=== PATIENT | male | born 1950 | race Caucasian/White ===

== ENCOUNTER 2022-05-09 14:49 | Inpatient (IN) | payer MEDICARE, OTHER ==
[2022-05-09] MEDS ORDERED: NOREPINEPHRINE 8 MG/250 ML-D5W 250 ML ONE (14:59)
[2022-05-09 15:43] LABS: Actual Bicarbonate (HCO3a) 2.1 mEq/L (22-28); CO2 Tension 24.9 mmHg (35.0-45.0); Calcium, Ionized (arterial) 1.24 mmol/L (1.12-1.30); Carboxyhemoglobin (COHb) 0.3 gm% (0.0-3.0); Hemoglobin (Hb) 10.1 g/dL (14.0-18.0); O2 Tension (PaO2), arterial 248.2 mmHg (> 80.0); Puncture Site LBA; pH, Arterial 6.55 (7.35-7.45)
[2022-05-09 15:46] LABS: ALV-art Gradient 77.175 mmHg (0-20); Base Excess (BEa) -35.6 mEq/L (-2.0 to +3.0)
[2022-05-09 15:54] LABS: #Neutrophils 7.3 10x3/uL (1.5-8.4); %Basophils 0.1 % (0.0-2.0); %Eosinophils 0.2 % (0.0-6.0); %Lymphocytes 27.1 % (18.0-47.0); %Neutrophils 60.2 % (40.0-75.0); Hemoglobin 6.3 g/dL (13.5-17.5); Mean Corpuscular HGB CONC 29.6 g/dL (32.0-36.0); Mean Corpuscular Volume 108.1 fl (81.2-95.1); Mean Platelet Volume 11.5 fl (7.4-10.4); Platelet Count 100 10x3/uL (150-450); RBC Distribution Width 12.4 % (11.5-14.5); Red Blood Cell (RBC) Count 1.97 10x6/uL (4.32-5.72); White Blood Cell (WBC) Count 12.2 10x3/uL (3.5-10.5)
[2022-05-09] MEDS ORDERED: Vancomycin 1 GM VIAL ONE (15:58)
[2022-05-09 16:08] LABS: ALT (SGPT) 25 U/L (8-55); AST (SGOT) 35 U/L (5-34); Alkaline Phosphatase 36 U/L (40-110); BUN (Urea Nitrogen) 58 mg/dL (8.4-25.7); Bilirubin, Total 0.2 mg/dL (0.2-1.2); CK (CPK) 117 U/L (30-200); Calc. Creatinine Clearance 0 mL/min (70-130); Chloride 122 mmol/L (98-107); Estimated GFR 9; Globulin 1.6 g/dL (2.4-3.5); Glucose 107 mg/dL (80-115); Lipase 70 U/L (8-78); Potassium 3.3 mmol/L (3.5-5.1); Protein, Total 3.6 g/dL (5.8-8.1); Sodium 145 mmol/L (136-145)
[2022-05-09 16:11] LABS: Calcium 5.4 mg/dL (7.8-10.44); Carbon Dioxide Less than 8 mmol/L (23-31)
[2022-05-09] MEDS ORDERED: Sodium Bicarbonate 150 MEQ in Dextrose 5% in Water 1,000 ML IV SCH (16:15)
[2022-05-09 16:50] LABS: Band 8 % (5-11); Eosinophils 1 % (0-10); Lymphocytes 28 % (21-51); Metamyelocyte 1 % (0-0); Monocytes 6 % (0-10); Myelocyte 1 % (0-0); Neutrophil 53 % (42-75); Reactive Lymphocytes 2 % (0-10)
[2022-05-09 16:53] LABS: Anisocytosis SLIGHT = 6-15 cells (100X) (0-5/hpf); Burr Cells SLIGHT = 2-5 cells (100X) (0-1/hpf); Crenated RBC SLIGHT = 1-5 cells (100X) (None Seen); Hypochromia SLIGHT = 6-15 cells (100X) (0-5/hpf); Macrocytosis SLIGHT = 6-15 cells (100X) (0-5/hpf); Ovalocytes SLIGHT = 2-5 cells (100X) (0-1/hpf)
[2022-05-09 16:55] LABS: Large Platelets SLIGHT; Platelet Morphology Comment Appears Decreased
[2022-05-09 17:00] LABS: #Basophils 0.1 10x3/uL (0.0-0.2); #Monocytes 1.4 10x3/uL (0.0-1.1); #Neutrophils 11.8 10x3/uL (1.5-8.4); %Basophils 0.3 % (0.0-2.0); %Eosinophils 0.2 % (0.0-6.0); %Lymphocytes 20.6 % (18.0-47.0); %Neutrophils 66.1 % (40.0-75.0); Hemoglobin 8.8 g/dL (13.5-17.5); Mean Corpuscular HGB CONC 29.6 g/dL (32.0-36.0); Mean Corpuscular Hemoglobin 31.7 pg (27.0-33.0); Mean Corpuscular Volume 106.8 fl (81.2-95.1); Mean Platelet Volume 12.2 fl (7.4-10.4); Platelet Count 132 10x3/uL (150-450); RBC Distribution Width 12.4 % (11.5-14.5); Red Blood Cell (RBC) Count 2.78 10x6/uL (4.32-5.72); White Blood Cell (WBC) Count 17.8 10x3/uL (3.5-10.5)
[2022-05-09] MEDS ORDERED: Ventilator Sedation Protocol 1 EACH FS PRN (17:10)
[2022-05-09] MEDS ORDERED: Dextrose 50% Abboject 50 ML SYRINGE SLOW IVP PRN (17:18)
[2022-05-09] MEDS ORDERED: HumaLOG 300 UNITS/3 ML VIAL SC PRN (17:18)
[2022-05-09] MEDS ORDERED: Dextrose 5% in Water 1,000 ML IV PRN (17:18)
[2022-05-09] MEDS ORDERED: Morphine 2 MG/ML VIAL SLOW IVP PRN (17:30)
[2022-05-09] MEDS ORDERED: Lorazepam 2 MG/ML VIAL SLOW IVP PRN (17:30)
[2022-05-09] MEDS ORDERED: Fentanyl BOLUS 250 ML IVPB PRN (17:30)
[2022-05-09] MEDS ORDERED: Propofol BOLUS 1,000 MG/100 ML VIAL IV PRN (17:30)
[2022-05-09] MEDS ORDERED: DISCONTINUE PREVIOUS NARCOTIC PAIN MEDICATIONS AND BENZODIAZEPINES FS SCH (17:30)
[2022-05-09] MEDS: NOREPINEPHRINE 8 MG/250 ML-D5W 250 ML IVPB SCH (17:48)
[2022-05-09 19:46] LABS: Lactic Acid 17.8 mmol/L (0.5-2.2)
[2022-05-09] MEDS ORDERED: Vancomycin Diaylsis Sliding Scale (Wt 71-99) FS SCH (20:15)
[2022-05-09] MEDS ORDERED: Vancomycin 1 GM in Premix Bag 1 BAG IVPB SCH (21:00)
[2022-05-09] MEDS: Propofol 1,000 MG/100 ML VIAL IV PRN (21:50)
[2022-05-09] MEDS: FENTANYL 2,000MCG/100-0.9%NACL 100 ML IVPB SCH (22:18)
[2022-05-09] MEDS: Heparin 5,000 UNITS/ML VIAL SC SCH (22:57)
[2022-05-10 00:01] LABS: Actual Bicarbonate (HCO3v) 19 mEq/L (22-28); Base Excess -8.4 mEq/L (-2.0 to +3.0); Calcium, Ionized (venous) 1.01 mmol/L (1.16-1.32); Chloride (VBG) 98 mmol/L (98-106); Critical Notified By: CP.PH; Hemoglobin (Hb) 9.6 g/dL (12.6-17.4); Potassium (VBG) 3.59 mmol/L (3.70-5.30); Puncture Site Other Site; Sodium 136.8 mmol/L (133-146); pH (venous) 7.23 (7.32-7.43)
[2022-05-10 00:08] LABS: Anion Gap 24 mmol/L (10-20); BUN (Urea Nitrogen) 35 mg/dL (8.4-25.7); Calc. Creatinine Clearance 22 mL/min (70-130); Calcium 7.6 mg/dL (7.8-10.44); Carbon Dioxide 18 mmol/L (23-31); Chloride 99 mmol/L (98-107); Estimated GFR 16; Glucose 199 mg/dL (80-115); Potassium 3.5 mmol/L (3.5-5.1); Sodium 137 mmol/L (136-145)
[2022-05-10 00:10] LABS: Lactic Acid 7.3 mmol/L (0.5-2.2)
[2022-05-10] MEDS: Propofol 1,000 MG/100 ML VIAL IV PRN ×4 (00:23→19:17)
[2022-05-10 00:30] LABS: SARS-CoV-2 NAA Rapid Test DETECTED (NotDetected)
[2022-05-10 00:33] LABS: HBSAg Index 0.17 S/CO (0-0.99); Hep B Surf Ag Non-Reactive S/CO (NonReactive)
[2022-05-10] MEDS: Dexamethasone 4 mg/ml Vial SLOW IVP SCH ×2 (00:59→12:42)
[2022-05-10] MEDS: HumaLOG 300 UNITS/3 ML VIAL SC PRN ×2 (01:03→05:41)
[2022-05-10 03:58] LABS: Lactic Acid 2.7 mmol/L (0.5-2.2)
[2022-05-10 04:01] LABS: Anion Gap 24 mmol/L (10-20); BUN (Urea Nitrogen) 39 mg/dL (8.4-25.7); Calc. Creatinine Clearance 17 mL/min (70-130); Calcium 7.8 mg/dL (7.8-10.44); Carbon Dioxide 18 mmol/L (23-31); Chloride 99 mmol/L (98-107); Estimated GFR 12; Glucose 194 mg/dL (80-115); Potassium 4.6 mmol/L (3.5-5.1); Sodium 136 mmol/L (136-145)
[2022-05-10 04:04] LABS: #Monocytes 0.5 10x3/uL (0.0-1.1); #Neutrophils 10.8 10x3/uL (1.5-8.4); %Basophils 0.1 % (0.0-2.0); %Lymphocytes 5.2 % (18.0-47.0); %Monocytes 4.2 % (0.0-10.0); %Neutrophils 89.9 % (40.0-75.0); Hemoglobin 9.5 g/dL (13.5-17.5); Mean Corpuscular HGB CONC 34.1 g/dL (32.0-36.0); Mean Corpuscular Volume 93.9 fl (81.2-95.1); Mean Platelet Volume 11.1 fl (7.4-10.4); Platelet Count 101 10x3/uL (150-450); RBC Distribution Width 12.4 % (11.5-14.5); Red Blood Cell (RBC) Count 2.97 10x6/uL (4.32-5.72); White Blood Cell (WBC) Count 12.1 10x3/uL (3.5-10.5)
[2022-05-10 08:16] LABS: Vancomycin, Random 8.4 ug/mL (See Comment)
[2022-05-10] MEDS: Heparin 5,000 UNITS/ML VIAL SC SCH ×3 (08:25→20:38)
[2022-05-10] MEDS: Famotidine/PF 20 mg/2ml Vial SLOW IVP SCH (08:26)
[2022-05-10] MEDS: FENTANYL 2,000MCG/100-0.9%NACL 100 ML IVPB SCH (09:54)
[2022-05-10] MEDS ORDERED: Heparin 10,000 UNITS/ 10 ML VIAL SLOW IVP PRN (10:09)
[2022-05-10 13:24] LABS: Hep B Core Total Ab Non-Reactive (NonReactive); Hep B Core Total Index 0.14 S/CO (0-0.79); Hep C IgG Ab Non-Reactive (NonReactive)
[2022-05-10 13:27] LABS: HBSAB Concentration 305.29 mIU/mL; Hep B Surf AB Reactive (NonReactive)
[2022-05-10] MEDS: NOREPINEPHRINE 8 MG/250 ML-D5W 250 ML IVPB SCH (13:59)
[2022-05-10] MEDS: Cefepime 0.5 GM, Admixture Fee 1 EACH in Sodium Chloride 0.9% 100 ML IVPB SCH (14:38)
[2022-05-10] MEDS ORDERED: Vancomycin HCl 1 GM in Sodium Chloride 0.9% 250 ML 250 ML IVPB SCH (17:00)
[2022-05-11] MEDS: Propofol 1,000 MG/100 ML VIAL IV PRN (00:56)
[2022-05-11] MEDS: Dexamethasone 4 mg/ml Vial SLOW IVP SCH ×2 (00:56→13:57)
[2022-05-11] MEDS: FENTANYL 2,000MCG/100-0.9%NACL 100 ML IVPB SCH ×2 (00:57→20:44)
[2022-05-11] MEDS: Dexmedetomidine In 0.9 % NaCl 400 MCG in Premix Bag 1 BAG IVPB SCH ×3 (04:58→23:07)
[2022-05-11] MEDS: Heparin 5,000 UNITS/ML VIAL SC SCH ×3 (08:03→22:14)
[2022-05-11] MEDS: Famotidine/PF 20 mg/2ml Vial SLOW IVP SCH (08:03)
[2022-05-11 08:44] LABS: #Eosinphils 0.1 10x3/uL (0.0-0.5); #Monocytes 0.2 10x3/uL (0.0-1.1); #Neutrophils 5.4 10x3/uL (1.5-8.4); %Eosinophils 1.3 % (0.0-6.0); %Lymphocytes 5.5 % (18.0-47.0); %Monocytes 2.8 % (0.0-10.0); %Neutrophils 89.9 % (40.0-75.0); Hemoglobin 9.4 g/dL (13.5-17.5); Mean Corpuscular HGB CONC 34.6 g/dL (32.0-36.0); Mean Corpuscular Hemoglobin 31.5 pg (27.0-33.0); Mean Corpuscular Volume 91.3 fl (81.2-95.1); Mean Platelet Volume 11.6 fl (7.4-10.4); Platelet Count 71 10x3/uL (150-450); RBC Distribution Width 12.6 % (11.5-14.5); Red Blood Cell (RBC) Count 2.98 10x6/uL (4.32-5.72)
[2022-05-11 08:46] LABS: Vancomycin, Random 17.5 ug/mL (See Comment)
[2022-05-11 08:48] LABS: Anion Gap 17 mmol/L (10-20); BUN (Urea Nitrogen) 37 mg/dL (8.4-25.7); Calc. Creatinine Clearance 18 mL/min (70-130); Calcium 7.7 mg/dL (7.8-10.44); Carbon Dioxide 25 mmol/L (23-31); Chloride 98 mmol/L (98-107); Estimated GFR 13; Glucose 156 mg/dL (80-115); Potassium 4.8 mmol/L (3.5-5.1); Sodium 135 mmol/L (136-145)
[2022-05-11 09:06] LABS: Actual Bicarbonate (HCO3v) 22 mEq/L (22-28); Base Excess -3.8 mEq/L (-2.0 to +3.0); Calcium, Ionized (venous) 1.05 mmol/L (1.16-1.32); Chloride (VBG) 97 mmol/L (98-106); Potassium (VBG) 4.59 mmol/L (3.70-5.30); Puncture Site Other Site; RapidComm Collect By CBN; Sodium 132.1 mmol/L (133-146); pH (venous) 7.33 (7.32-7.43)
[2022-05-11] MEDS: Cefepime 0.5 GM, Admixture Fee 1 EACH in Sodium Chloride 0.9% 100 ML IVPB SCH (16:17)
[2022-05-11] MEDS: hydrALAZINE 20 MG/ML VIAL SLOW IVP PRN ×2 (16:57→20:58)
[2022-05-12] MEDS: hydrALAZINE 20 MG/ML VIAL SLOW IVP PRN (00:39)
[2022-05-12] MEDS: HumaLOG 300 UNITS/3 ML VIAL SC PRN (00:50)
[2022-05-12] MEDS: Dexamethasone 4 mg/ml Vial SLOW IVP SCH ×2 (01:15→12:45)
[2022-05-12 04:47] LABS: #Monocytes 0.2 10x3/uL (0.0-1.1); #Neutrophils 5.5 10x3/uL (1.5-8.4); %Lymphocytes 6.6 % (18.0-47.0); %Monocytes 3.9 % (0.0-10.0); %Neutrophils 88.7 % (40.0-75.0); Hemoglobin 10.2 g/dL (13.5-17.5); Mean Corpuscular HGB CONC 33.8 g/dL (32.0-36.0); Mean Corpuscular Hemoglobin 31.1 pg (27.0-33.0); Mean Corpuscular Volume 92.1 fl (81.2-95.1); Mean Platelet Volume 11.7 fl (7.4-10.4); Platelet Count 71 10x3/uL (150-450); RBC Distribution Width 12.8 % (11.5-14.5); Red Blood Cell (RBC) Count 3.28 10x6/uL (4.32-5.72)
[2022-05-12 04:57] LABS: Anion Gap 15 mmol/L (10-20); BUN (Urea Nitrogen) 52 mg/dL (8.4-25.7); Calc. Creatinine Clearance 15 mL/min (70-130); Calcium 7.9 mg/dL (7.8-10.44); Carbon Dioxide 22 mmol/L (23-31); Chloride 99 mmol/L (98-107); Estimated GFR 11; Glucose 174 mg/dL (80-115); Potassium 4.2 mmol/L (3.5-5.1); Sodium 132 mmol/L (136-145)
[2022-05-12] MEDS: Dexmedetomidine In 0.9 % NaCl 400 MCG in Premix Bag 1 BAG IVPB SCH ×2 (07:47→16:55)
[2022-05-12] MEDS: Heparin 5,000 UNITS/ML VIAL SC SCH ×3 (08:53→19:44)
[2022-05-12] MEDS: Famotidine/PF 20 mg/2ml Vial SLOW IVP SCH (08:53)
[2022-05-12] MEDS: FENTANYL 2,000MCG/100-0.9%NACL 100 ML IVPB SCH (12:24)
[2022-05-12] MEDS: Cefepime 0.5 GM, Admixture Fee 1 EACH in Sodium Chloride 0.9% 100 ML IVPB SCH (14:07)
[2022-05-12] MEDS ORDERED: Vancomycin HCl 750 MG in Sodium Chloride 0.9% 250 ML 250 ML IVPB SCH (17:00)
[2022-05-13] MEDS: Dexamethasone 20 MG/5 ML VIAL SLOW IVP SCH ×2 (01:08→12:46)
[2022-05-13] MEDS: Dexmedetomidine In 0.9 % NaCl 400 MCG in Premix Bag 1 BAG IVPB SCH ×3 (01:09→22:49)
[2022-05-13] MEDS: hydrALAZINE 20 MG/ML VIAL SLOW IVP PRN ×2 (01:19→11:28)
[2022-05-13 06:15] LABS: #Monocytes 0.2 10x3/uL (0.0-1.1); #Neutrophils 5.5 10x3/uL (1.5-8.4); %Lymphocytes 5.2 % (18.0-47.0); %Monocytes 2.7 % (0.0-10.0); %Neutrophils 90.8 % (40.0-75.0); Mean Corpuscular HGB CONC 33.7 g/dL (32.0-36.0); Mean Corpuscular Hemoglobin 31.1 pg (27.0-33.0); Mean Corpuscular Volume 92.2 fl (81.2-95.1); Mean Platelet Volume 11.4 fl (7.4-10.4); Platelet Count 62 10x3/uL (150-450); RBC Distribution Width 12.5 % (11.5-14.5); Red Blood Cell (RBC) Count 3.22 10x6/uL (4.32-5.72); White Blood Cell (WBC) Count 5.8 10x3/uL (3.5-10.5)
[2022-05-13 06:23] LABS: Anion Gap 17 mmol/L (10-20); BUN (Urea Nitrogen) 52 mg/dL (8.4-25.7); Calc. Creatinine Clearance 17 mL/min (70-130); Calcium 8.3 mg/dL (7.8-10.44); Carbon Dioxide 24 mmol/L (23-31); Chloride 101 mmol/L (98-107); Estimated GFR 12; Glucose 201 mg/dL (80-115); Potassium 3.9 mmol/L (3.5-5.1); Sodium 138 mmol/L (136-145)
[2022-05-13] MEDS: HumaLOG 300 UNITS/3 ML VIAL SC PRN (06:26)
[2022-05-13] MEDS: Heparin 5,000 UNITS/ML VIAL SC SCH (08:29)
[2022-05-13] MEDS: Famotidine/PF 20 mg/2ml Vial SLOW IVP SCH (08:36)
[2022-05-13 12:15] LABS: PTT 27.6 sec (22.0-33.0); Prothrombin Time 11.1 sec (9.5-12.1)
[2022-05-13] MEDS: Cefepime 0.5 GM, Admixture Fee 1 EACH in Sodium Chloride 0.9% 100 ML IVPB SCH (15:04)
[2022-05-14] MEDS: Dexamethasone 20 MG/5 ML VIAL SLOW IVP SCH (00:28)
[2022-05-14] MEDS: hydrALAZINE 20 MG/ML VIAL SLOW IVP PRN ×3 (00:29→22:10)
[2022-05-14 06:10] LABS: Mean Corpuscular HGB CONC 34.8 g/dL (32.0-36.0); Mean Corpuscular Hemoglobin 31.5 pg (27.0-33.0); Mean Corpuscular Volume 90.5 fl (81.2-95.1); Mean Platelet Volume 12.6 fl (7.4-10.4); Platelet Count 62 10x3/uL (150-450); RBC Distribution Width 12.4 % (11.5-14.5); Red Blood Cell (RBC) Count 3.17 10x6/uL (4.32-5.72); White Blood Cell (WBC) Count 7.6 10x3/uL (3.5-10.5)
[2022-05-14 06:19] LABS: Anion Gap 19 mmol/L (10-20); BUN (Urea Nitrogen) 80 mg/dL (8.4-25.7); Calc. Creatinine Clearance 13 mL/min (70-130); Calcium 8.6 mg/dL (7.8-10.44); Carbon Dioxide 22 mmol/L (23-31); Chloride 103 mmol/L (98-107); Estimated GFR 9; Glucose 195 mg/dL (80-115); Potassium 3.9 mmol/L (3.5-5.1); Sodium 140 mmol/L (136-145)
[2022-05-14 06:24] LABS: MDiff Complete? YES
[2022-05-14] MEDS: HumaLOG 300 UNITS/3 ML VIAL SC PRN ×2 (06:26→09:27)
[2022-05-14 06:30] LABS: Eosinophils 1 % (0-10); Lymphocytes 7 % (21-51); Monocytes 4 % (0-10); Neutrophil 87 % (42-75); Reactive Lymphocytes 1 % (0-10)
[2022-05-14 06:31] LABS: Platelet Morphology Comment Appears Decreased
[2022-05-14] MEDS: Dexmedetomidine In 0.9 % NaCl 400 MCG in Premix Bag 1 BAG IVPB SCH (08:03)
[2022-05-14] MEDS: Famotidine/PF 20 mg/2ml Vial SLOW IVP SCH (09:03)
[2022-05-14] MEDS: Ondansetron PF 4 MG/2 ML Vial IVP PRN (13:33)
[2022-05-14] MEDS: Cefepime 0.5 GM, Admixture Fee 1 EACH in Sodium Chloride 0.9% 100 ML IVPB SCH (16:19)
[2022-05-14] MEDS: Lorazepam 2 MG/ML VIAL SLOW IVP PRN (20:50)
[2022-05-15] MEDS: Ondansetron PF 4 MG/2 ML Vial IVP PRN (01:12)
[2022-05-15] MEDS ORDERED: Guaifenesin DM 100-10/5 ML UDCUP PO SCH (03:15)
[2022-05-15] MEDS ORDERED: Guaifenesin DM 100-10/5 ML UDCUP ONE (03:21)
[2022-05-15] MEDS: hydrALAZINE 20 MG/ML VIAL SLOW IVP PRN ×2 (03:24→11:04)
[2022-05-15 04:26] LABS: Hemoglobin 9.6 g/dL (13.5-17.5); Platelet Count 90 10x3/uL (150-450)
[2022-05-15 04:30] LABS: Anion Gap 19 mmol/L (10-20); BUN (Urea Nitrogen) 97 mg/dL (8.4-25.7); Calc. Creatinine Clearance 11 mL/min (70-130); Calcium 8.5 mg/dL (7.8-10.44); Carbon Dioxide 24 mmol/L (23-31); Chloride 101 mmol/L (98-107); Estimated GFR 7; Glucose 97 mg/dL (80-115); Potassium 3.5 mmol/L (3.5-5.1); Sodium 140 mmol/L (136-145)
[2022-05-15] MEDS: Acetaminophen 650 MG Suppository PR PRN ×2 (07:26→18:20)
[2022-05-15 08:08] LABS: Vancomycin, Random 18.8 ug/mL (See Comment)
[2022-05-15] MEDS: Famotidine/PF 20 mg/2ml Vial SLOW IVP SCH (08:18)
[2022-05-15] MEDS: Dexamethasone 4 mg/ml Vial SLOW IVP SCH (08:18)
[2022-05-15] MEDS ORDERED: Dexamethasone 6 MG in Sodium Chloride 0.9% 50 ML IVPB SCH (09:00)
[2022-05-15] MEDS: Heparin 5,000 UNITS/ML VIAL SC SCH ×2 (09:57→15:09)
[2022-05-15] MEDS: Cefepime 0.5 GM, Admixture Fee 1 EACH in Sodium Chloride 0.9% 100 ML IVPB SCH (15:08)
[2022-05-15] MEDS ORDERED: Vancomycin HCl 500 MG in Sodium Chloride 0.9% 100 ML IVPB SCH (17:00)
[2022-05-15] MEDS: Lorazepam 2 MG/ML VIAL SLOW IVP PRN (23:15)
[2022-05-16] MEDS: hydrALAZINE 20 MG/ML VIAL SLOW IVP PRN ×3 (00:13→10:40)
[2022-05-16 04:53] LABS: Hemoglobin 9.8 g/dL (13.5-17.5); Platelet Count 85 10x3/uL (150-450)
[2022-05-16 04:55] LABS: Anion Gap 15 mmol/L (10-20); BUN (Urea Nitrogen) 50 mg/dL (8.4-25.7); Calc. Creatinine Clearance 15 mL/min (70-130); Calcium 8.6 mg/dL (7.8-10.44); Carbon Dioxide 27 mmol/L (23-31); Chloride 102 mmol/L (98-107); Estimated GFR 10; Glucose 106 mg/dL (80-115); Potassium 3.7 mmol/L (3.5-5.1); Sodium 140 mmol/L (136-145)
[2022-05-16] MEDS: Dexamethasone 4 mg/ml Vial SLOW IVP SCH (08:31)
[2022-05-16] MEDS: Famotidine/PF 20 mg/2ml Vial SLOW IVP SCH (08:31)
[2022-05-16 09:26] VITALS: BMI 24.3
[2022-05-16] MEDS: Lorazepam 2 MG/ML VIAL SLOW IVP PRN (12:59)
[2022-05-16 14:39] LABS: Heparin-Induced Ab (HITA) 0.206 OD (0.000-0.400)
[2022-05-17] MEDS: hydrALAZINE 20 MG/ML VIAL SLOW IVP PRN ×2 (04:32→10:53)
[2022-05-17] MEDS: Dexamethasone 4 mg/ml Vial SLOW IVP SCH (10:49)
[2022-05-17] MEDS: Famotidine/PF 20 mg/2ml Vial SLOW IVP SCH (10:49)
[2022-05-17] MEDS: Lorazepam 2 MG/ML VIAL SLOW IVP PRN (22:58)
[2022-05-18] MEDS ORDERED: Dexamethasone 4 mg/ml Vial SLOW IVP SCH (09:00)
[2022-05-18] MEDS: Famotidine/PF 20 mg/2ml Vial SLOW IVP SCH (09:56)
[2022-05-18] MEDS: Aspirin 81 mg Enteric Coated Tablet PO SCH (09:56)
[2022-05-18] MEDS: NIFEdipine XL 60 MG TAB PO SCH (09:56)
[2022-05-18] MEDS: Lorazepam 2 MG/ML VIAL SLOW IVP PRN (22:34)
[2022-05-19] MEDS: hydrALAZINE 20 MG/ML VIAL SLOW IVP PRN (03:35)
[2022-05-19 04:36] LABS: Hemoglobin 9.1 g/dL (13.5-17.5); Platelet Count 110 10x3/uL (150-450)
[2022-05-19] MEDS: Aspirin 81 mg Enteric Coated Tablet PO SCH (10:41)
[2022-05-19] MEDS: NIFEdipine XL 60 MG TAB PO SCH (10:41)
[2022-05-19] MEDS: Heparin 5,000 UNITS/ML VIAL SC SCH (10:41)
[2022-05-19] MEDS: Dexamethasone 1 MG TAB PO SCH (10:41)
[2022-05-19] MEDS: Famotidine/PF 20 mg/2ml Vial SLOW IVP SCH (10:41)
[2022-05-19] MEDS ORDERED: Lorazepam 2 MG/ML VIAL SLOW IVP PRN (12:28)
[2022-05-20] MEDS: Acetaminophen 325 MG TAB PO PRN ×2 (02:33→20:30)
[2022-05-20] MEDS: Aspirin 81 mg Enteric Coated Tablet PO SCH (11:24)
[2022-05-20] MEDS: Famotidine/PF 20 mg/2ml Vial SLOW IVP SCH (11:24)
[2022-05-20] MEDS: NIFEdipine XL 60 MG TAB PO SCH (11:24)
[2022-05-20] MEDS: Dexamethasone 1 MG TAB PO SCH (11:24)
[2022-05-21] MEDS ORDERED: Lorazepam 1 MG TAB PO SCH (00:15)
[2022-05-21 05:03] LABS: #Eosinphils 0.1 10x3/uL (0.0-0.5); #Monocytes 0.6 10x3/uL (0.0-1.1); #Neutrophils 6.1 10x3/uL (1.5-8.4); %Basophils 0.1 % (0.0-2.0); %Eosinophils 1.6 % (0.0-6.0); %Monocytes 6.8 % (0.0-10.0); %Neutrophils 70.5 % (40.0-75.0); Hemoglobin 7.6 g/dL (13.5-17.5); Mean Corpuscular HGB CONC 33.8 g/dL (32.0-36.0); Mean Corpuscular Volume 91.8 fl (81.2-95.1); Mean Platelet Volume 12.2 fl (7.4-10.4); Platelet Count 117 10x3/uL (150-450); RBC Distribution Width 12.2 % (11.5-14.5); Red Blood Cell (RBC) Count 2.45 10x6/uL (4.32-5.72); White Blood Cell (WBC) Count 8.7 10x3/uL (3.5-10.5)
[2022-05-21 05:11] LABS: ALT (SGPT) 31 U/L (8-55); AST (SGOT) 18 U/L (5-34); Albumin 3.2 g/dL (3.4-4.8); Alkaline Phosphatase 63 U/L (40-110); Anion Gap 17 mmol/L (10-20); BUN (Urea Nitrogen) 51 mg/dL (8.4-25.7); Bilirubin, Total 0.7 mg/dL (0.2-1.2); Calc. Creatinine Clearance 13 mL/min (70-130); Calcium 8.1 mg/dL (7.8-10.44); Carbon Dioxide 24 mmol/L (23-31); Chloride 96 mmol/L (98-107); Estimated GFR 9; Globulin 2.5 g/dL (2.4-3.5); Glucose 102 mg/dL (80-115); Potassium 3.8 mmol/L (3.5-5.1); Protein, Total 5.7 g/dL (5.8-8.1); Sodium 133 mmol/L (136-145)
[2022-05-21 05:23] LABS: CRP (Inflammatory) 0.66 mg/dL (= or < 0.5)
[2022-05-21] MEDS: Famotidine/PF 20 mg/2ml Vial SLOW IVP SCH (08:23)
[2022-05-21] MEDS: Aspirin 81 mg Enteric Coated Tablet PO SCH (08:23)
[2022-05-21] MEDS: NIFEdipine XL 60 MG TAB PO SCH (08:23)
[2022-05-21] MEDS ORDERED: Pantoprazole 40 MG VIAL IVP SCH (12:00)
[2022-05-21 12:47] LABS: Hemoglobin 7.5 g/dL (13.5-17.5)
[2022-05-21 17:53] LABS: Hemoglobin 8.1 g/dL (13.5-17.5)
[2022-05-21] MEDS: Pantoprazole 40 MG VIAL IVP SCH (20:44)
[2022-05-22] MEDS: Pantoprazole 40 MG VIAL IVP SCH ×2 (09:57→22:01)
[2022-05-22] MEDS: NIFEdipine XL 60 MG TAB PO SCH (09:58)
[2022-05-23] MEDS: Pantoprazole 40 MG VIAL IVP SCH ×2 (08:43→21:05)
[2022-05-23] MEDS: NIFEdipine XL 60 MG TAB PO SCH ×2 (08:43→09:00)
[2022-05-23 09:30] LABS: Anion Gap 16 mmol/L (10-20); BUN (Urea Nitrogen) 55 mg/dL (8.4-25.7); Calc. Creatinine Clearance 15 mL/min (70-130); Calcium 8.5 mg/dL (7.8-10.44); Carbon Dioxide 24 mmol/L (23-31); Chloride 99 mmol/L (98-107); Estimated GFR 10; Glucose 98 mg/dL (80-115); Potassium 4.1 mmol/L (3.5-5.1); Sodium 135 mmol/L (136-145)
[2022-05-23 10:29] LABS: #Eosinphils 0.1 10x3/uL (0.0-0.5); #Monocytes 0.6 10x3/uL (0.0-1.1); #Neutrophils 4.7 10x3/uL (1.5-8.4); %Basophils 0.2 % (0.0-2.0); %Eosinophils 0.8 % (0.0-6.0); %Lymphocytes 14.8 % (18.0-47.0); %Monocytes 8.8 % (0.0-10.0); %Neutrophils 74.6 % (40.0-75.0); Hemoglobin 6.4 g/dL (13.5-17.5); Mean Corpuscular HGB CONC 34.2 g/dL (32.0-36.0); Mean Corpuscular Hemoglobin 31.2 pg (27.0-33.0); Mean Corpuscular Volume 91.2 fl (81.2-95.1); Mean Platelet Volume 11.7 fl (7.4-10.4); Platelet Count 109 10x3/uL (150-450); RBC Distribution Width 12.6 % (11.5-14.5); Red Blood Cell (RBC) Count 2.05 10x6/uL (4.32-5.72); White Blood Cell (WBC) Count 6.3 10x3/uL (3.5-10.5)
[2022-05-23 15:10] LABS: Hemoglobin 5.9 g/dL (13.5-17.5)
[2022-05-24 06:11] LABS: #Eosinphils 0.1 10x3/uL (0.0-0.5); #Monocytes 0.6 10x3/uL (0.0-1.1); #Neutrophils 4.6 10x3/uL (1.5-8.4); %Basophils 0.2 % (0.0-2.0); %Lymphocytes 15.2 % (18.0-47.0); %Monocytes 9.1 % (0.0-10.0); %Neutrophils 73.5 % (40.0-75.0); Hemoglobin 6.7 g/dL (13.5-17.5); Mean Corpuscular HGB CONC 34.7 g/dL (32.0-36.0); Mean Corpuscular Hemoglobin 30.5 pg (27.0-33.0); Mean Corpuscular Volume 87.7 fl (81.2-95.1); Mean Platelet Volume 11.5 fl (7.4-10.4); Platelet Count 112 10x3/uL (150-450); RBC Distribution Width 15.6 % (11.5-14.5); White Blood Cell (WBC) Count 6.3 10x3/uL (3.5-10.5)
[2022-05-24 06:16] LABS: Anion Gap 16 mmol/L (10-20); BUN (Urea Nitrogen) 72 mg/dL (8.4-25.7); Calc. Creatinine Clearance 11 mL/min (70-130); Calcium 8.3 mg/dL (7.8-10.44); Carbon Dioxide 23 mmol/L (23-31); Chloride 99 mmol/L (98-107); Estimated GFR 7; Glucose 123 mg/dL (80-115); Potassium 5.2 mmol/L (3.5-5.1); Sodium 133 mmol/L (136-145)
[2022-05-24] MEDS ORDERED: EPOETIN ALFA-EPBX (ESRD) 10,000 UNIT/ML VIAL IVP PRN (08:06)
[2022-05-24] MEDS: NIFEdipine XL 60 MG TAB PO SCH (08:55)
[2022-05-24 10:24] LABS: Iron 43 ug/dL (65-175); Iron Binding Capacity, Total 141 mcg/dL (261-462)
[2022-05-24] MEDS: Acetaminophen 325 MG TAB PO PRN (12:07)
[2022-05-25 04:30] LABS: #Eosinphils 0.1 10x3/uL (0.0-0.5); #Monocytes 0.6 10x3/uL (0.0-1.1); #Neutrophils 4.6 10x3/uL (1.5-8.4); %Basophils 0.2 % (0.0-2.0); %Lymphocytes 15.2 % (18.0-47.0); %Monocytes 9.1 % (0.0-10.0); %Neutrophils 73.2 % (40.0-75.0); Hemoglobin 7.9 g/dL (13.5-17.5); Mean Corpuscular HGB CONC 34.9 g/dL (32.0-36.0); Mean Corpuscular Hemoglobin 30.1 pg (27.0-33.0); Mean Corpuscular Volume 86.1 fl (81.2-95.1); Mean Platelet Volume 11.7 fl (7.4-10.4); Platelet Count 123 10x3/uL (150-450); RBC Distribution Width 16.6 % (11.5-14.5); Red Blood Cell (RBC) Count 2.66 10x6/uL (4.32-5.72); White Blood Cell (WBC) Count 6.3 10x3/uL (3.5-10.5)
[2022-05-25 04:36] LABS: Anion Gap 14 mmol/L (10-20); BUN (Urea Nitrogen) 37 mg/dL (8.4-25.7); Calc. Creatinine Clearance 17 mL/min (70-130); Calcium 8.4 mg/dL (7.8-10.44); Carbon Dioxide 27 mmol/L (23-31); Chloride 99 mmol/L (98-107); Estimated GFR 13; Glucose 96 mg/dL (80-115); Potassium 4.2 mmol/L (3.5-5.1); Sodium 136 mmol/L (136-145)
[2022-05-25 04:57] VITALS: TEMP 98.7
[2022-05-25] MEDS: NIFEdipine XL 60 MG TAB PO SCH (11:48)
[2022-05-25 13:24] VITALS: BP 140/64
== END 2022-05-25 12:35 | DRG 208 ==
LOC: CSHERS 14:49 → EDBD 14:49 → CSHIMCU 16:40 → CSHTELE 05-16 17:12
PROVIDERS: ADMIT Internal Medicine; ATTEND Internal Medicine
PROC: 5A1945Z Respiratory Ventilation, 24-96 Consecutive Hours (ICD-10-PCS; principal; 2022-05-09)
PROC: 0BH17EZ Insertion of Endotracheal Airway into Trachea, Via Natural or Artificial Opening (ICD-10-PCS; 2022-05-09)
PROC: 02HV33Z Insertion of Infusion Device into Superior Vena Cava, Percutaneous Approach (ICD-10-PCS; 2022-05-09)
PROC: 8E0ZXY6 Isolation (ICD-10-PCS; 2022-05-09)
PROC: 3E033XZ Introduction of Vasopressor into Peripheral Vein, Percutaneous Approach (ICD-10-PCS; 2022-05-09)
PROC: 3E0333Z Introduction of Anti-inflammatory into Peripheral Vein, Percutaneous Approach (ICD-10-PCS; 2022-05-09)
PROC: 5A1D70Z Performance of Urinary Filtration, Intermittent, Less than 6 Hours Per Day (ICD-10-PCS; 2022-05-09)
PROC: 5A1D70Z Performance of Urinary Filtration, Intermittent, Less than 6 Hours Per Day (ICD-10-PCS; 2022-05-10)
PROC: 5A1D70Z Performance of Urinary Filtration, Intermittent, Less than 6 Hours Per Day (ICD-10-PCS; 2022-05-12)
PROC: 5A1D70Z Performance of Urinary Filtration, Intermittent, Less than 6 Hours Per Day (ICD-10-PCS; 2022-05-15)
PROC: 5A1D70Z Performance of Urinary Filtration, Intermittent, Less than 6 Hours Per Day (ICD-10-PCS; 2022-05-17)
PROC: 5A1D70Z Performance of Urinary Filtration, Intermittent, Less than 6 Hours Per Day (ICD-10-PCS; 2022-05-19)
PROC: 5A1D70Z Performance of Urinary Filtration, Intermittent, Less than 6 Hours Per Day (ICD-10-PCS; 2022-05-22)
PROC: 30233N1 Transfusion of Nonautologous Red Blood Cells into Peripheral Vein, Percutaneous Approach (ICD-10-PCS; 2022-05-23)
PROC: 5A1D70Z Performance of Urinary Filtration, Intermittent, Less than 6 Hours Per Day (ICD-10-PCS; 2022-05-24)
DX: U07.1 COVID-19 (principal); G93.41 Metabolic encephalopathy; J96.01 Acute respiratory failure with hypoxia; N18.6 End stage renal disease; R57.8 Other shock; J96.02 Acute respiratory failure with hypercapnia; N25.81 Secondary hyperparathyroidism of renal origin; I12.0 Hypertensive chronic kidney disease with stage 5 chronic kidney disease or end stage renal disease; E87.5 Hyperkalemia; I25.10 Atherosclerotic heart disease of native coronary artery without angina pectoris; E78.5 Hyperlipidemia, unspecified; D63.1 Anemia in chronic kidney disease; F17.210 Nicotine dependence, cigarettes, uncomplicated; E11.22 Type 2 diabetes mellitus with diabetic chronic kidney disease; E87.6 Hypokalemia; E88.09 Other disorders of plasma-protein metabolism, not elsewhere classified; D69.6 Thrombocytopenia, unspecified; E83.51 Hypocalcemia; Z79.899 Other long term (current) drug therapy; Z79.84 Long term (current) use of oral hypoglycemic drugs; Z79.82 Long term (current) use of aspirin; Z99.2 Dependence on renal dialysis
CPT/HCPCS: 31500; 36415; 36416; 36430; 36600; 71045; 80048; 80053; 80202; 82010; 82550; 82607; 82805; 83540; 83550; 83605; 83690; 83880; 83930; 84145; 84484; 85014; 85018; 85025; 85049; 85384; 85610; 85730; 86140; 86704; 86850; 86900; 86901; 90935; 93005; 93010; 94002; 94003; 94760; 96374; 96375; 97139; C9113; G0257; J0360; J0692; J1100; J1644; J1815; J1956; J2060; J2405; J2704; J3370; J3490; J7050; J7070; J8540; P9016; S0028; U0002